=== PATIENT | female | born 1970 | race Two or more races ===

== ENCOUNTER 2024-09-01 19:23 | Emergency (ER) | payer OTHER ==
[~2024-09-01] VITALS: Ht 165.1 cm; Wt 62.6 kg
[2024-09-01] MEDS ORDERED: CEFTRIAXONE SODIUM 1,000 MG VIAL ONE (21:21)
[2024-09-01] MEDS ORDERED: KETOROLAC TROMETHAMINE 60 MG VIAL IM ONE ×2 (21:21→21:30)
[2024-09-01] MEDS ORDERED: CEFTRIAXONE SODIUM 1,000 MG VIAL IM ONE (21:30)
[2024-09-01 21:45] LABS: HEMATOCRIT 31.2 % (36.0-45.00); HEMOGLOBIN 10.5 g/dL (12.0-15.00); MEAN CELL VOLUME 82.5 fL (80.00-100.00); MEAN CORPUSCULAR HEMOGLOBIN 27.9 pg (27.00-32.0); MEAN CORPUSCULAR HGB CONC 33.8 g/dl (32.0-36.0); PLATELET COUNT 208 K/uL (150-450); RED BLOOD COUNT 3.78 M/uL (4.00-6.00); RED CELL DISTRIBUTION WIDTH 13.8 % (11.5-14.5)
[2024-09-01] MEDS ORDERED: DUI500 PO (22:12)
== END 2024-09-01 22:18 | disposition home or self-care (01) ==
LOC: ER 19:25
PROVIDERS: General Practice
DX: L03.113 Cellulitis of right upper limb (principal)

== ENCOUNTER 2024-10-22 13:35 | Emergency (ER) | payer OTHER ==
[~2024-10-22] VITALS: Ht 165.1 cm; Wt 63.5 kg
[~2024-10-22 13:35] MED LIST: DUI500 PO
[2024-10-22] MEDS ORDERED: PHENYLEPHRINE HCL 1% NASAL DROPS OP STA (14:10)
[2024-10-22] MEDS ORDERED: PHENYLEPHRINE HCL 1% NASAL DROPS NASAL STA (14:16)
[2024-10-22 15:07] LABS: HEMATOCRIT 33.4 % (36.0-45.00); MEAN CELL VOLUME 83.2 fL (80.00-100.00); MEAN CORPUSCULAR HEMOGLOBIN 27.3 pg (27.00-32.0); MEAN CORPUSCULAR HGB CONC 32.9 g/dl (32.0-36.0); RED BLOOD COUNT 4.02 M/uL (4.00-6.00)
[2024-10-22 16:01] LABS: INR 0.95; PARTIAL THROMBOPLASTIN TIME 29.8 SECONDS (22.0-34.0); PROTHROMBIN TIME 10.4 SECONDS (9.0-11.5)
[2024-10-22 16:06] LABS: PLATELET COUNT 199 K/uL (150-450)
== END 2024-10-22 15:36 | disposition home or self-care (01) ==
LOC: ER 13:37
PROVIDERS: Emergency Medicine
DX: K13.79 Other lesions of oral mucosa (principal); K14.0 Glossitis; S09.93XA Unspecified injury of face, initial encounter